=== PATIENT | male | born 1950 | race Native Hawaiian/Other Pacific Islander ===

== ENCOUNTER 2018-03-29 19:24 | Emergency (ER) | payer MEDICAID, OTHER ==
[~2018-03-29] VITALS: Ht 167.6 cm; Wt 113.4 kg
[2018-03-29 19:37] VITALS: BP 153/83
--- NOTE | 2018-03-29 19:40 | NUR ---
pt bib self c/o left ear pain for 1 week. no drainage or bleeding, +hearing. pt is awake and acting appropriate. hx DM, HTN
--- NOTE | 2018-03-29 19:41 | NUR ---
PT TAKEN TO BED 3
[2018-03-29 20:01] VITALS: BP 153/83
== END 2018-03-29 20:00 | disposition home or self-care (01) ==
LOC: MED 19:24
DX: H65.192 Other acute nonsuppurative otitis media, left ear (principal)
CPT/HCPCS: 99283

== ENCOUNTER 2018-07-25 07:55 | Emergency (ER) | payer OTHER ==
[~2018-07-25] VITALS: Ht 172.7 cm; Wt 104.3 kg
--- NOTE | 2018-07-25 07:57 | NUR ---
PATIENT AMBULATED TO BED 08 AT THIS TIME.
[2018-07-25 08:00] VITALS: BP 157/87
--- NOTE | 2018-07-25 08:00 | NUR ---
PATIENT PRESENTS TO ED WITH rolled off bed tuesday night---c/o acute sharp pain right rib area no discoloration no swelling noted---full clear speech, no splinting noted . PT DENIES N/V/D; SKIN IS PINK/WARM/DRY; AAOX4 WITH EVEN AND STEADY GAIT; LUNGS CLEAR BL; HR EVEN AND REGULAR; PT DENIES ANY FEVER, CP, SOB, OR COUGH AT THIS TIME; PATIENT STATES PAIN OF 8/10 AT THIS TIME; VSS; PATIENT POSITIONED FOR COMFORT; HOB ELEVATED; BEDRAILS UP X2; BED DOWN. ER MD MADE AWARE OF PT STATUS.
[2018-07-25] MEDS ORDERED: KETOROLAC 60 MG/2 ML VIAL IM ONE (08:50)
--- NOTE | 2018-07-25 09:00 | NUR ---
pt to radiology via
[2018-07-25 10:35] VITALS: BP 156/89
== END 2018-07-25 10:35 | disposition home or self-care (01) ==
LOC: MED 07:55
DX: S20.211A Contusion of right front wall of thorax, initial encounter (principal); R59.9 Enlarged lymph nodes, unspecified; K59.00 Constipation, unspecified; E11.9 Type 2 diabetes mellitus without complications; I10 Essential (primary) hypertension; R91.1 Solitary pulmonary nodule; Z85.46 Personal history of malignant neoplasm of prostate; W06.XXXA Fall from bed, initial encounter; Y93.89 Activity, other specified; Y92.89 Other specified places as the place of occurrence of the external cause; Y99.8 Other external cause status
CPT/HCPCS: 71250; 74176; 82948; 96372; 99284; J1885

== ENCOUNTER 2018-08-09 08:50 | Outpatient (CLI) | payer OTHER | END 2018-08-09 19:27 | disposition home or self-care (01) | LOC: MRD 08:50 | DX: R91.1 Solitary pulmonary nodule (principal); I10 Essential (primary) hypertension; E11.9 Type 2 diabetes mellitus without complications | CPT/HCPCS: 71250 ==

== ENCOUNTER 2018-10-21 18:01 | Emergency (ER) | payer OTHER ==
[~2018-10-21] VITALS: Ht 160 cm; Wt 113.4 kg
[2018-10-21 18:05] VITALS: BP 161/85
--- NOTE | 2018-10-21 18:05 | NUR ---
pt ambulated to bed 8
--- NOTE | 2018-10-21 18:14 | NUR ---
68 y male bib self c/o lower back pain 10/10 aching and worsening over 1 wk. pt says "it started months ago". Denies CP/SOB/Dysuria/NVD/trauma. vss at this time. aa0x4. bed is down, locked, bed rail x 1, ermd to see pt. hx---DM, HTN, Hypercholesterolemia meds--metformin, "some blood pressure med"
--- NOTE | 2018-10-21 18:47 | NUR ---
son at bedside
--- NOTE | 2018-10-21 19:06 | NUR ---
REPORT GIVEN TO RAMESH MORALES
--- NOTE | 2018-10-21 19:17 | NUR ---
Dr. Galeano evaluating patient at bedside.
[2018-10-21] MEDS ORDERED: KETOROLAC 60 MG/2 ML VIAL IM ONE (19:25)
--- NOTE | 2018-10-21 19:29 | NUR ---
TAKEN BY XRAY IN WHEELCHAIR.
--- NOTE | 2018-10-21 19:31 | NUR ---
Mk van in [facility] - 10/21/18 at 1931 by ELDA PT TAKEN TO YUAN
--- NOTE | 2018-10-21 19:41 | NUR ---
PT RETURN FROM XRAY
--- NOTE | 2018-10-21 19:41 | NUR ---
PT MOVED TO BED 6
[2018-10-21 20:22] VITALS: BP 151/82
== END 2018-10-21 20:23 | disposition home or self-care (01) ==
LOC: MED 18:01
DX: M54.5 Low back pain (principal); E11.9 Type 2 diabetes mellitus without complications; I10 Essential (primary) hypertension; Z85.9 Personal history of malignant neoplasm, unspecified
CPT/HCPCS: 72100; 96372; 99283; J1885

== ENCOUNTER 2018-11-16 10:50 | Outpatient (CLI) | payer OTHER | END 2018-11-16 20:00 | disposition home or self-care (01) | LOC: MRD 10:50 | PROVIDERS: ATTEND Internal Medicine | DX: R91.1 Solitary pulmonary nodule (principal) | CPT/HCPCS: 71250 ==

== ENCOUNTER 2019-04-25 07:45 | Outpatient (CLI) | payer OTHER | END 2019-04-25 22:02 | disposition home or self-care (01) | LOC: MCT 07:45 | PROVIDERS: ATTEND Internal Medicine | DX: R91.1 Solitary pulmonary nodule (principal); I51.7 Cardiomegaly; I25.10 Atherosclerotic heart disease of native coronary artery without angina pectoris; I70.0 Atherosclerosis of aorta; K44.9 Diaphragmatic hernia without obstruction or gangrene; K80.20 Calculus of gallbladder without cholecystitis without obstruction; E88.2 Lipomatosis, not elsewhere classified | CPT/HCPCS: 71250 ==

== ENCOUNTER 2019-09-05 01:15 | Emergency (ER) | payer MEDICARE, OTHER ==
[~2019-09-05] VITALS: Ht 167.6 cm; Wt 113.4 kg
[2019-09-05 01:19] VITALS: BP 169/84
--- NOTE | 2019-09-05 01:24 | NUR ---
PT TAKEN TO BED 5
--- NOTE | 2019-09-05 01:48 | NUR ---
69 YO MALE CO PAIN IN HIS LOWER BACK THAT RADIATES TO HIS STOMACH AND UPPER BACK. PT STATES THAT THE PAIN IS 9/10 IN HIS UPPER BACK ONLY. STATES "ATE PEANUT BUTTER TODAY AND THEN MY BACK STARTED TO HURT." HX OF DM, HIGH CHOLESTEROL. PT IS TAKING METFORMIN AND MED FOR HIGH CHOLESTEROL.
--- NOTE | 2019-09-05 01:52 | NUR ---
Dr. Ragsdale examining patient.
[2019-09-05] MEDS ORDERED: ACETAMINOPHEN EXTRA STRENGTH 500 MG TAB PO ONE (02:05)
--- NOTE | 2019-09-05 02:41 | NUR ---
Mk van in [facility] - 09/05/19 at 0253 by ELDA PT TAKEN TO BED 5
--- NOTE | 2019-09-05 02:44 | NUR ---
PT TAKEN TO CT
--- NOTE | 2019-09-05 03:06 | NUR ---
PT IN BED AWAKE AND ALERT. PT STATES PAIN IS 4/10 AT THIS TIME.
--- NOTE | 2019-09-05 03:54 | NUR ---
lab at bedside
[2019-09-05 04:01] LABS: BASOPHILS % (AUTO) 0.3 % (0.0-2.0); EOSINOPHILS # (AUTO) 0.3 K/uL (0-0.4); EOSINOPHILS % (AUTO) 3.4 % (0.0-4.0); HEMATOCRIT 43.6 % (36-52); HEMOGLOBIN 14.3 g/dL (12.0-18.0); LYMPHOCYTES # (AUTO) 1.5 K/uL (2.0-11.5); LYMPHOCYTES % (AUTO) 15.7 % (20.5-51.1); MEAN CORPUSCULAR HEMOGLOBIN 29 pg (27-31); MEAN CORPUSCULAR HGB CONC 33 g/dL (33-37); MONOCYTES # (AUTO) 0.9 K/uL (0.8-1.0); MONOCYTES % (AUTO) 9.2 % (1.7-9.3); NEUTROPHILS # (AUTO) 6.7 K/uL (1.8-7.7); NEUTROPHILS % (AUTO) 71.4 % (42.2-75.2); PLATELET COUNT (AUTO) 180 K/uL (140-450); RED CELL DISTRIBUTION WIDTH 13.6 % (11.6-13.7); WHITE BLOOD COUNT (AUTO) 9.4 K/uL (4.8-10.8)
--- NOTE | 2019-09-05 04:06 | NUR ---
pt laying in bed asleep. arouseable to name. pt is feelig less pain. no acute changes.
[2019-09-05 04:16] LABS: ALBUMIN 3.3 g/dL (3.4-5.0); ANION GAP 11.5 (8-16); CARBON DIOXIDE 28.4 mmol/L (21-32); CREATININE 1.1 mg/dL (0.6-1.3); POTASSIUM 3.9 mmol/L (3.5-5.1); TOTAL BILIRUBIN 0.4 mg/dL (0.0-1.0)
--- NOTE | 2019-09-05 04:17 | NUR ---
Ultrasound at bedside.
[2019-09-05 06:07] VITALS: BP 127/84
--- NOTE | 2019-09-05 06:08 | NUR ---
Note carlota in EDM - 09/05/19 at 0611 by [facility] Patient discharged with v/s stable. Written and verbal after care instructions given and explained. Patient alert, oriented and verbalized understanding of instructions. Ambulatory with steady gait. All questions addressed prior to discharge. ID band removed. Patient advised to follow up with PMD. Rx of IBUPROFEN given. Patient educated on indication of medication including possible reaction and side effects. Opportunity to ask questions provided and answered.
== END 2019-09-05 06:00 | disposition home or self-care (01) ==
LOC: MED 01:15
DX: K80.20 Calculus of gallbladder without cholecystitis without obstruction (principal); M54.5 Low back pain; E11.9 Type 2 diabetes mellitus without complications; I10 Essential (primary) hypertension; Z98.890 Other specified postprocedural states; Z85.46 Personal history of malignant neoplasm of prostate
CPT/HCPCS: 36415; 72131; 74176; 76705; 80053; 83690; 85025; 99285; Q0092

== ENCOUNTER 2020-01-11 23:55 | Emergency (ER) | payer MEDICARE ==
[~2020-01-11] VITALS: Ht 167.6 cm; Wt 113.4 kg
[2020-01-12 00:02] VITALS: BP 174/90
[2020-01-12] MEDS ORDERED: KETOROLAC 30 MG/ML VIAL IVP ONE (00:55)
[2020-01-12 01:13] LABS: BASOPHILS # (AUTO) 0.1 K/uL (0.00-0.22); BASOPHILS % (AUTO) 1.2 % (0.0-2.0); EOSINOPHILS # (AUTO) 0.1 K/uL (0-0.4); EOSINOPHILS % (AUTO) 1.5 % (0.0-4.0); HEMATOCRIT 45.1 % (36-52); HEMOGLOBIN 14.9 g/dL (12.0-18.0); LYMPHOCYTES # (AUTO) 1.7 K/uL (2.0-11.5); LYMPHOCYTES % (AUTO) 17.6 % (20.5-51.1); MEAN CORPUSCULAR HEMOGLOBIN 29 pg (27-31); MEAN CORPUSCULAR HGB CONC 33 g/dL (33-37); MEAN CORPUSCULAR VOLUME 89.2 fL (80-94); MONOCYTES # (AUTO) 0.9 K/uL (0.8-1.0); MONOCYTES % (AUTO) 9.4 % (1.7-9.3); NEUTROPHILS # (AUTO) 6.8 K/uL (1.8-7.7); NEUTROPHILS % (AUTO) 70.3 % (42.2-75.2); PLATELET COUNT (AUTO) 191 K/uL (140-450); RED BLOOD CELL COUNT(AUTO) 5.05 MIL/uL (4.20-6.10); RED CELL DISTRIBUTION WIDTH 13.4 % (11.6-13.7); WHITE BLOOD COUNT (AUTO) 9.7 K/uL (4.8-10.8)
[2020-01-12 01:30] LABS: ALBUMIN 3.6 g/dL (3.4-5.0); ANION GAP 14.2 (8-16); CARBON DIOXIDE 26.6 mmol/L (21-32); POTASSIUM 3.8 mmol/L (3.5-5.1); TOTAL BILIRUBIN 0.5 mg/dL (0.0-1.0)
[2020-01-12 02:12] VITALS: BP 172/89
== END 2020-01-12 02:10 | disposition home or self-care (01) ==
LOC: MED 23:55
DX: R10.13 Epigastric pain (principal); E11.9 Type 2 diabetes mellitus without complications; I10 Essential (primary) hypertension; Z85.46 Personal history of malignant neoplasm of prostate
CPT/HCPCS: 36415; 76705; 80053; 81002; 83690; 85025; 96374; 99284; J1885; Q0092

== ENCOUNTER 2020-03-07 07:40 | Emergency (ER) | payer MEDICARE ==
[~2020-03-07] VITALS: Ht 162.6 cm; Wt 113.4 kg
[2020-03-07 07:42] VITALS: BP 150/78
--- NOTE | 2020-03-07 07:44 | NUR ---
PT AMBULATED TO BED 4.
--- NOTE | 2020-03-07 07:50 | NUR ---
PT C/O NON-RADIATING LEFT-SIDED LOWER BACK PAIN SINCE YESTERDAY. PT STATES HE HAD THIS KIND OF PAIN BEFORE AND HAD SOME RELIEF WITHOUT TYLENOL. PT DENIES ANY COVID RELATED SX, URINARY/FECAL INCONTINENCE, NUMBNESS/TINGLING SENSATION ON LOWER LEGS, TRAUMA/INJURY TO THE BACK. STRAIGHT RAISING LEG TEST NEGATIVE.
[2020-03-07] MEDS ORDERED: KETOROLAC 30 MG/ML VIAL IM ONE (08:05)
[2020-03-07 09:16] VITALS: BP 146/87
--- NOTE | 2020-03-07 09:16 | NUR ---
Patient discharged with v/s stable. Written and verbal after care instructions given and explained. Patient alert, oriented and verbalized understanding of instructions. Ambulatory with steady gait. All questions addressed prior to discharge. ID band removed. Patient advised to follow up with PMD. Rx of NAPROSYN AND FLEXERIL given. Patient educated on indication of medication including possible reaction and side effects. Opportunity to ask questions provided and answered.
== END 2020-03-07 09:10 | disposition home or self-care (01) ==
LOC: MED 07:40
DX: M54.5 Low back pain (principal); E11.9 Type 2 diabetes mellitus without complications; I10 Essential (primary) hypertension; Z85.9 Personal history of malignant neoplasm, unspecified; Z98.890 Other specified postprocedural states
CPT/HCPCS: 81002; 96372; 99283; J1885

== ENCOUNTER 2020-04-12 00:18 | Observation (INO) | payer MEDICARE, SELFPAY ==
[~2020-04-12] VITALS: Ht 162.6 cm; Wt 113.4 kg
[2020-04-12 00:22] VITALS: BP 174/82
--- NOTE | 2020-04-12 00:29 | NUR ---
PT AMBULATED TO BED #9
--- NOTE | 2020-04-12 00:50 | NUR ---
IN BED 9 WITH C/O RIGHT MID ABDOMINAL PAIN X 3.5 HOURS. MUCH FACIAL GRIMACING IS NOTED. ABDOMEN IS SOFT AND TENDER. LAST BM WAS YESTERDAY AM AND WAS WNL. PMH : DM, HTN NKDA
--- NOTE | 2020-04-12 00:50 | NUR ---
TO BED 9 WITH C/O RIGHY Addendum: 04/12/20 at 0111 by OSIELKH TO BED 9 WITH C/O RIGHT ABDOMINAL PAIN X 3.5 HOURS. DENIES VOMITING OR DIARRHEA. IS AWAKE AND ALERT, SKIN IS WARM AND DRY. BOWEL SOUNDS ARE ACTIVE, ABDOMEN IS TENDER. PMH ; DM, HTN NKDA
[2020-04-12] MEDS ORDERED: NACL 0.9% 1,000 ML IV ONE (01:15)
[2020-04-12] MEDS ORDERED: MORPHINE SULFATE 4 MG/ML SYR IVP ONE (01:15)
[2020-04-12] MEDS ORDERED: ONDANSETRON 4 MG/2 ML VIAL IVP ONE (01:15)
[2020-04-12] MEDS ORDERED: PANTOPRAZOLE 40 MG INJ VIAL IVP ONE (01:15)
[2020-04-12 01:34] LABS: BASOPHILS # (AUTO) 0.1 K/uL (0.00-0.22); BASOPHILS % (AUTO) 0.7 % (0.0-2.0); EOSINOPHILS # (AUTO) 0.2 K/uL (0-0.4); EOSINOPHILS % (AUTO) 2.4 % (0.0-4.0); HEMATOCRIT 45.1 % (36-52); LYMPHOCYTES # (AUTO) 2.3 K/uL (2.0-11.5); LYMPHOCYTES % (AUTO) 27.8 % (20.5-51.1); MEAN CORPUSCULAR HEMOGLOBIN 30 pg (27-31); MEAN CORPUSCULAR HGB CONC 33 g/dL (33-37); MEAN CORPUSCULAR VOLUME 88.6 fL (80-94); MONOCYTES # (AUTO) 1.1 K/uL (0.8-1.0); MONOCYTES % (AUTO) 12.8 % (1.7-9.3); NEUTROPHILS # (AUTO) 4.7 K/uL (1.8-7.7); NEUTROPHILS % (AUTO) 56.3 % (42.2-75.2); PLATELET COUNT (AUTO) 181 K/uL (140-450); RED BLOOD CELL COUNT(AUTO) 5.09 MIL/uL (4.20-6.10); RED CELL DISTRIBUTION WIDTH 13.5 % (11.6-13.7); WHITE BLOOD COUNT (AUTO) 8.3 K/uL (4.8-10.8)
[2020-04-12 01:44] LABS: ANION GAP 9.9 (8-16); CARBON DIOXIDE 28.7 mmol/L (21-32); CREATININE 1.1 mg/dL (0.6-1.3); POTASSIUM 3.6 mmol/L (3.5-5.1)
[2020-04-12 01:50] LABS: ALBUMIN 3.5 g/dL (3.4-5.0); TOTAL BILIRUBIN 0.5 mg/dL (0.0-1.0)
--- NOTE | 2020-04-12 02:00 | NUR ---
18 G ESTABLISHED RIGHT A/C FOLLOWED BY MEDS ORDERED
--- NOTE | 2020-04-12 02:10 | NUR ---
CONSENT FORM OBTAINED AND SIGNED BY PT.
--- NOTE | 2020-04-12 02:12 | NUR ---
TO CT VIA W/C. CONSENT FOR CONTRAST WAS SIGNED
--- NOTE | 2020-04-12 02:30 | NUR ---
pt returned back from ct via w/c.
--- NOTE | 2020-04-12 02:41 | NUR ---
urine specimen collected and sent to lab.
[2020-04-12 03:04] LABS: APPEARANCE,URINE CLEAR (CLEAR); BILIRUBIN,URINE NEGATIVE (NEGATIVE); BLOOD, URINE TRACE-I (NEGATIVE); COLOR,URINE YELLOW (YELLOW); LEUKOCYTE ESTERASE ,URINE NEGATIVE (NEGATIVE); NITRITE, URINE NEGATIVE (NEGATIVE); UGLUCOSE 1+ (NEGATIVE)
--- NOTE | 2020-04-12 03:06 | NUR ---
PT AMBULATED TO BATHROOM WITH A STEADY GAIT.
--- NOTE | 2020-04-12 03:09 | NUR ---
REEVALUATED PTS PAIN LEVEL. PT SAID PAIN DECREASED.
[2020-04-12 03:20] LABS: HYALINE CASTS, URINE 0-10 /LPF (None Seen); RBC,URINE 0-5 /HPF (0-5); WBC,URINE 0 /HPF (0-5)
[2020-04-12] MEDS ORDERED: KETOROLAC 30 MG/ML VIAL IVP ONE (04:10)
[2020-04-12] MEDS ORDERED: METF500T PO (04:33)
[2020-04-12] MEDS ORDERED: LISI30TA6 PO (04:33)
--- NOTE | 2020-04-12 05:52 | NUR ---
PT AMBULATED TO BATHROOM WITH A STEADY GAIT.
--- NOTE | 2020-04-12 06:05 | NUR ---
RECEIVED BEDSIDE REPORT FROM DRAFTER REFRIGERATION YANI. PT IS AAOX4. DIVEHI SPEAKING. AMBULATED FROM WHEEL CHAIR TO BED WITH STEADY GAIT. SKIN IS INTACT LUNG SOUNDS ARE CLEAR AND SAT WELL ON ROOM AIR. C/C RUQ PAIN X1 DAY. DX CHOLELITHIASIS HX DM AND HTN. ABD IS ROUND, BOWEL SOUNDS ARE ACTIVE X4. LBM 04/12. PT REPORT LAST MEAL YESTERDAY AT 1800. PT NPO. IV ON RAC 18G IS PATENT. PT BEING ADMITTED UNDER OBSERVATION. VS: 166/70 HR 77 16 98% RA 97.8 PAIN TOLERABLE 10. MRSA SWAB OBTAINED. ORIENTED PT TO ROOM, STAFF, AND CALL LIGHT. POC DISCUSSED WITH PT. PT VERBALIZED UNDERSTANDING. CALL LIGHT IS WITHIN REACH. WILL CONTINUE TO MONITOR.
--- NOTE | 2020-04-12 06:05 | NUR ---
Patient will be admitted to care of CARMEN CISNEROS. Admited to 111B . Belongings list completed. PT IS MORE COMFORTABLE AT THIS TIME .
[2020-04-12] MEDS ORDERED: MORPHINE SULFATE 4 MG/ML SYR IVP PRN (06:10)
[2020-04-12] MEDS ORDERED: NACL 0.9% 1,000 ML IV SCH (06:10)
[2020-04-12] MEDS ORDERED: ONDANSETRON 4 MG/2 ML VIAL IVP PRN ×2 (06:10→16:40)
[2020-04-12] MEDS ORDERED: ACETAMINOPHEN 325 MG TAB PO PRN (06:10)
[2020-04-12] MEDS ORDERED: HYDROcodone/APAP 5/325 MG 1 TAB TAB PO PRN ×2 (06:10→17:45)
[2020-04-12 06:15] VITALS: BP 166/70
[2020-04-12] MEDS ORDERED: DEXTROSE 50% 50 ML SYR IVP PRN (06:20)
--- NOTE | 2020-04-12 07:30 | NUR ---
GAVE BEDSIDE REPORT TO DAY RN. PT ENDORSED IN STABLE CONDITION.
--- NOTE | 2020-04-12 07:35 | NUR ---
RECEIVED PT FROM DIRECTOR GRAPHICS NURSE, PT WAS AWAKE IN BED AND VERBALIZED 3 OUT OF 10 PAIN LOCATED TO THE RUQ, 18 G IV NOTED TO RAC RUNNING NS 80ML/HR, NO ZAMBRANO PRESENT, ON ROOM AIR, SAFETY MEASURES AND PRECAUTIONS IN PLACE, 2 SIDE HEAD RAILS UP, NO DISTRESS NOTED, WILL CONTINUE TO MONITOR PT.
[2020-04-12 08:00] VITALS: BP 142/79
--- NOTE | 2020-04-12 10:30 | NUR ---
PT IS RESTING DENIES PAIN AND NO SIGN OF DISTRESS NOTED, WILL MONITOR PT.
[2020-04-12] MEDS: PIPERACILLIN/TAZOBACTAM 3.375 GM in DEXTROSE 5% 50 ML IV SCH ×2 (12:48→20:25)
[2020-04-12] MEDS: BLOOD GLUCOSE MONITORING 1 DEV DEV FS SCH ×2 (12:50→18:49)
--- NOTE | 2020-04-12 12:50 | NUR ---
PT WAS GIVEN THE SCHEDULED MEDICATIONS NOW VIA IVPB, BLOOD GLUCOSE WAS CHECKED AND IS 160, PT WAS NOT GIVEN THE 2 UNITS SLIDING SCALE COVERAGE BECAUSE PT IS NPO, WILL MONITOR PT.
--- NOTE | 2020-04-12 13:58 | NUR ---
DR. TRUJILLO CAME TO THE PT'S ROOM AND TALKED TO PT REGARDING THE PLAN OF SURGERY, MD DISCUSSED RISKS AND BENEFITS AND PT VERBALIZED UNDERSTANDING.
--- NOTE | 2020-04-12 14:05 | NUR ---
PT SIGNED THE CONSENT FOR A LAPAROSCOPIC CHOLECYSTECTOMY POSSIBLE CHOLANGIOGRAM, PT VERBALIZED UNDERSTANDING OF THE RISK AND BENEFITS THAT MD DISCUSSED.
--- NOTE | 2020-04-12 14:12 | NUR ---
CALLED LAB NOW TO F/U THE TYPE AND SCREEN ORDER FOR PT.
[2020-04-12 14:39] LABS: PROTHROMBIN TIME 10.1 secs (10.8-13.4)
--- NOTE | 2020-04-12 14:50 | NUR ---
PT IS OFF THE UNIT NOW FOR A LAPAROSCOPIC CHOLECYSTECTOMY WITH DR. TRUJILLO.
[2020-04-12] MEDS: BUPIVACAINE-MPF 0.25% 30 ML VIAL INJ ONE ×2 (15:00→17:45)
[2020-04-12] MEDS: LIDOCAINE 1% 500 MG/50 ML VIAL ONE ×2 (15:00→17:45)
[2020-04-12] MEDS ORDERED: ETOMIDATE 20 MG/10 ML VIAL IVP ONE (15:45)
[2020-04-12] MEDS ORDERED: fentaNYL citrate 0.05 MG/ML VIAL ONE (15:45)
[2020-04-12] MEDS ORDERED: LIDOCAINE MPF 2% 100 MG/5 ML VIAL INJ ONE (15:45)
[2020-04-12] MEDS ORDERED: PROPOFOL 200 MG/20 ML VIAL IV ONE (15:45)
[2020-04-12] MEDS ORDERED: ROCURONIUM 50 MG/5 ML VIAL IV ONE (15:45)
[2020-04-12] MEDS ORDERED: hydrALAZINE 20 MG/ML VIAL ONE (15:45)
[2020-04-12] MEDS ORDERED: NEOSTIGMINE 1:1000 10 MG/10 ML VIAL ONE (15:45)
[2020-04-12] MEDS ORDERED: SEVOFLURANE 250 ML BTL INH ONE (15:45)
[2020-04-12] MEDS ORDERED: METOCLOPRAMIDE 10 MG/2 ML INJ VIAL ONE (15:45)
[2020-04-12] MEDS ORDERED: SUCCINYLCHOLINE CHLORIDE 200 MG/10 ML VIAL IVP ONE (15:45)
[2020-04-12] MEDS ORDERED: MEPERIDINE 25 MG/ML SYR ONE (15:45)
[2020-04-12] MEDS ORDERED: LABETALOL 20 MG/4 ML VIAL IVP ONE (15:45)
[2020-04-12] MEDS ORDERED: GLYCOPYRROLATE 0.2 MG/ML VIAL ONE (15:45)
[2020-04-12] MEDS: BLOOD GLUCOSE MONITORING 1 DEV DEV FS ONE ×2 (16:40→17:55)
[2020-04-12] MEDS ORDERED: diphenhydrAMINE 50 MG/ML VIAL IVP PRN (16:40)
[2020-04-12] MEDS ORDERED: MEPERIDINE 25 MG/ML SYR IVP PRN (16:40)
[2020-04-12] MEDS ORDERED: fentaNYL citrate 0.05 MG/ML VIAL IVP PRN (16:45)
--- NOTE | 2020-04-12 18:45 | NUR ---
PT CAME BACK FROM SURGERY, BP IS 107/52, TEMP. IS 98.6, O2 SATURATION IS 95% ON RA, RESPIRATION IS 22, C/O PAIN IS 2/10, 5 SURGICAL INCISIONS NOTED ON THE ABDOMEN, REINFORCED WITH BAND-AID. WILL MONITOR PT.
[2020-04-12] MEDS: LACTATED RINGERS 1,000 ML IV SCH (18:52)
--- NOTE | 2020-04-12 18:52 | NUR ---
PT WAS STARTED WITH IVF LACTATED RINGER AT 120ML/HR.
--- NOTE | 2020-04-12 18:55 | NUR ---
PT INITIATED LIQUID DIET, PT IS TOLERATING LIQUID DIET WELL, WILL CONTINUE TO MONITOR PT
--- NOTE | 2020-04-12 19:20 | NUR ---
ENDORSED PT TO ASSISTANT DIRECTOR OF RESIDENCE LIFE NURSE FOR CONTINUITY OF CARE, PT IS STABLE AT THIS TIME.
--- NOTE | 2020-04-12 19:25 | NUR ---
RECEIVED PT AAOX4 . NID - O2 SAT WNL , IV SITE INTACT AND PATENT , S/P LAP. CHOLECYSTECTOMY - W/ 5 SURGICAL EXCISSION ON ABD. - NO ACTIVE BLEEDING NOTED AT THIS TIME . BEARABLE PAIN HE SAID AT THIS TIME . SAFETY MEASURES IN PLACE - CALL LIGHT WITHIN REACH . PLAN OF CARE DISCUSSED AND VERBALIZED UNDERSTANDING . CLEAR LIQ DIET - TOLERATED . WILL CONT. TO MONITOR.
--- NOTE | 2020-04-12 22:00 | NUR ---
MADE ROUNDS , NO S/SX OF ACUTE DISTRESS NOTED AT THIS TIME . CALL LIGHT WITHIN REACH .
[2020-04-13] VITALS: BP 114/76
--- NOTE | 2020-04-13 | NUR ---
WENT TO THE REST ROOM , VOIDED FREELY - NO COMPLAIN MADE .
[2020-04-13] MEDS: INSULIN LISPRO SLIDING SCALE 100 UNITS/ML VIAL SUBQ PRN ×6 (00:19→23:44)
--- NOTE | 2020-04-13 01:48 | NUR ---
SLEEPING - CHEST RISE AND FALL EQUALLY - CALL LIGHT WITHIN REACH .
--- NOTE | 2020-04-13 04:00 | NUR ---
O2 SAT WNL - DENIES ANY PAIN . NO S/SX OF ACUTE DISTRESS NOTED . WILL CONT. TO MONITOR
[2020-04-13] MEDS: LACTATED RINGERS 1,000 ML IV SCH ×3 (04:38→17:46)
[2020-04-13] MEDS: PIPERACILLIN/TAZOBACTAM 3.375 GM in DEXTROSE 5% 50 ML IV SCH ×3 (04:39→21:42)
--- NOTE | 2020-04-13 06:00 | NUR ---
NO COMPLAIN MADE . CALL LIGHT WITHIN REACH .
--- NOTE | 2020-04-13 06:27 | NUR ---
PATIENT HAS BEEN SCREENED AND CATEGORIZED MODERATE NUTRITION RISK. PATIENT WILL BE SEEN WITHIN 3-5 DAYS OF ADMISSION. 04/15/20-04/17/20 JEFFY WASSERMAN MS, RDN
[2020-04-13 06:39] LABS: HEMATOCRIT 41.4 % (36-52); MEAN CORPUSCULAR HEMOGLOBIN 30 pg (27-31); MEAN CORPUSCULAR HGB CONC 34 g/dL (33-37); MEAN CORPUSCULAR VOLUME 87.5 fL (80-94); PLATELET COUNT (AUTO) 155 K/uL (140-450); RED BLOOD CELL COUNT(AUTO) 4.72 MIL/uL (4.20-6.10); RED CELL DISTRIBUTION WIDTH 13.2 % (11.6-13.7); WHITE BLOOD COUNT (AUTO) 12.5 K/uL (4.8-10.8)
[2020-04-13] MEDS: BLOOD GLUCOSE MONITORING 1 DEV DEV FS SCH ×5 (06:53→23:41)
[2020-04-13 07:00] LABS: ALBUMIN 2.7 g/dL (3.4-5.0); ANION GAP 13.9 (8-16); CARBON DIOXIDE 25.6 mmol/L (21-32); CREATININE 1.1 mg/dL (0.6-1.3); POTASSIUM 3.5 mmol/L (3.5-5.1); TOTAL BILIRUBIN 1.9 mg/dL (0.0-1.0)
--- NOTE | 2020-04-13 07:10 | NUR ---
ENDORSED TO AM SHIFT - PT - STABLE .
--- NOTE | 2020-04-13 07:10 | NUR ---
RECEIVED PT FROM MANAGER RESEARCH AND DEVELOPMENT NURSE, 5 SURGICAL INCISIONS LOCATED IN THE ABDOMEN REINFORCED WITH BANDAID, NO DRAINAGE, INTACT ,THE PT WAS AWAKE IN BED, 18 G IV NOTED TO RAC RUNNING LR 120 ML/HR, PT VERBALIZED HE HAS NOT PASSED GAS YET BUT AMBULATED SEVERAL TIMES TO THE BATHROOM, NO ZAMBRANO PRESENT, ON ROOM AIR, SAFETY MEASURES AND PRECAUTIONS IN PLACE, 2 SIDE HEAD RAILS UP, NO DISTRESS NOTED, WILL CONTINUE TO MONITOR PT.
[2020-04-13 07:47] LABS: BASOPHILS % (MANUAL) 0 % (0-2); EOSINOPHILS % (MANUAL) 0 % (0-4); LYMPHOCYTES % (MANUAL) 13 % (20-46); MONOCYTES % (MANUAL) 10 % (5-12)
[2020-04-13 08:00] VITALS: BP 126/63
--- NOTE | 2020-04-13 09:45 | NUR ---
DR. TRUJILLO CALLED AND ASKED ABOUT PT STATUS, MD WAS INFORMED PT AMBULATED IN [facility], NO SIGNS OF DISTRESS NOTED, HAS NOT PASSED GAS YET. DR. TRUJILLO MADE TELEPHONE ORDER TO INFORM DR. LEI TO HAVE A GI CONSULTATION FOR THE PT, TELEPHONE ORDER READ BACK AND VERIFIED, ORDER WILL BE CARRIED OUT.
--- NOTE | 2020-04-13 12:27 | NUR ---
PT WAS GIVEN IVPB SCHEDULED MEDICATIONS, AND INSULIN 2 UNITS ON THE LEFT UA, FOR BLOOD GLUCOSE OF 190, WILL MONITOR PT.
--- NOTE | 2020-04-13 13:50 | NUR ---
DR. HARTMAN CAME AND PLACE A GI CONSULT FOR PT WITH DR. LIU FOR THE INCREASE SERUM BILIRUBIN OF THE PT.
--- NOTE | 2020-04-13 14:00 | NUR ---
SPOKE WITH DR. HARTMAN REGARDING PT'S OBSERVATION STATUS, ATTENDING STATED HE WILL BE THE ONE TO PLACE THE ORDER FOR IN PATIENT.
[2020-04-13 16:00] VITALS: BP 144/69
--- NOTE | 2020-04-13 17:57 | NUR ---
PT WAS GIVEN INSULIN 2 UNITS ON THE RT UA FOR BLOOD GLUCOSE OF 159 AND WILL MONITOR PT.
--- NOTE | 2020-04-13 19:25 | NUR ---
RECEIVED REPORT AND CONTINUITY OF CARE FROM AM NURSE.
--- NOTE | 2020-04-13 19:26 | NUR ---
ENDORSED PT TO LOCAL [place] DRIVER NURSE FOR CONTINUITY OF CARE
--- NOTE | 2020-04-13 21:20 | NUR ---
UPON PHYSICAL ASSESSMENT, PT IS A/OX4, ABLE TO RESPOND TO QUESTIONS, HEAD IS ROUND, NORMOCEPHALIC, FACE IS UNIFORMED, SYMMETRICAL, ALIGNED EYEBROWS AND SMILE, PMMM, SCLERA WHITE, PERRL. TRACHEA IS PLACE IN THE MIDLINE OF THE NECK, NO JVD PRESENT. CHEST IS SYMMETRICAL, LUNGS ARE CTAX4, ON INSPIRATION AND EXPIRATION. S1, S2 HEART TONES NOTED. BOWEL TONES ARE ACTIVE IN FOUR QUADRANTS. ABD IS FLAT AND NONTENDER. PT IS S/P LAB ROSA MARIA, SURGICAL INCISIONS ARE COVERED WITH BAND-AID WHICH ARE CLEAN, DRY, INTACT. SKIN IS SMOOTH, WARM, DRY. NAILS ARE CLEAN, INTACT, CAP REFILL IS LESS THAN 3 SECONDS, NO CLUBBING OR CYANOSIS NOTED. EQUAL AND BILATERAL PEDAL PULSES NOTED. NONPITTING BILATERAL LOWER EXTREMITIES NOTED. ORIENTED PT TO STAFF AND CALL LIGHT. ADMINISTERED SCHEDULED MEDICATION. EDUCATION RENDERED. SAFETY PRECAUTIONS IN PLACE.
[2020-04-14] VITALS: BP 136/72
--- NOTE | 2020-04-14 01:15 | NUR ---
WOUND ASSESSMENT COMPLETE. PHOTOGRAPH DONE.
[2020-04-14] MEDS: LACTATED RINGERS 1,000 ML IV SCH ×2 (02:24→11:32)
--- NOTE | 2020-04-14 04:30 | NUR ---
PT IS SLEEPING. NO SIGNS OF DISTRESS NOTED.
[2020-04-14] MEDS: PIPERACILLIN/TAZOBACTAM 3.375 GM in DEXTROSE 5% 50 ML IV SCH ×2 (05:17→12:19)
[2020-04-14] MEDS: BLOOD GLUCOSE MONITORING 1 DEV DEV FS SCH ×2 (06:46→12:15)
[2020-04-14] MEDS: INSULIN LISPRO SLIDING SCALE 100 UNITS/ML VIAL SUBQ PRN (06:46)
[2020-04-14 06:59] LABS: BASOPHILS % (AUTO) 0.1 % (0.0-2.0); EOSINOPHILS # (AUTO) 0.2 K/uL (0-0.4); EOSINOPHILS % (AUTO) 1.2 % (0.0-4.0); HEMATOCRIT 40.2 % (36-52); HEMOGLOBIN 13.5 g/dL (12.0-18.0); LYMPHOCYTES # (AUTO) 1.3 K/uL (2.0-11.5); LYMPHOCYTES % (AUTO) 9.9 % (20.5-51.1); MEAN CORPUSCULAR HEMOGLOBIN 30 pg (27-31); MEAN CORPUSCULAR HGB CONC 34 g/dL (33-37); MONOCYTES # (AUTO) 1.7 K/uL (0.8-1.0); MONOCYTES % (AUTO) 12.5 % (1.7-9.3); NEUTROPHILS # (AUTO) 10.1 K/uL (1.8-7.7); NEUTROPHILS % (AUTO) 76.3 % (42.2-75.2); PLATELET COUNT (AUTO) 146 K/uL (140-450); RED BLOOD CELL COUNT(AUTO) 4.56 MIL/uL (4.20-6.10); RED CELL DISTRIBUTION WIDTH 13.3 % (11.6-13.7); WHITE BLOOD COUNT (AUTO) 13.2 K/uL (4.8-10.8)
[2020-04-14 07:04] LABS: ALBUMIN 2.7 g/dL (3.4-5.0); ANION GAP 13.1 (8-16); CARBON DIOXIDE 27.2 mmol/L (21-32); CREATININE 1.1 mg/dL (0.6-1.3); POTASSIUM 3.3 mmol/L (3.5-5.1); TOTAL BILIRUBIN 1.5 mg/dL (0.0-1.0)
--- NOTE | 2020-04-14 07:15 | NUR ---
RECEIVED PATIENT FROM SUBSTATION OPERATOR TRANSFORMING NURSE PA FOR CONTINUITY OF CARE. PATIENT IN STABLE CONDITION. RESPIRATIONS EVEN AND UNLABORED, ROOM AIR. IV INTACT AND PATENT. SAFETY MEASURES IN PLACE. BED IN LOW POSITION. CALL LIGHT WITHIN REACH. WILL CONTINUE TO MONITOR.
[2020-04-14 08:00] VITALS: BP 156/75
--- NOTE | 2020-04-14 09:30 | NUR ---
PATIENT WATCHING TV SITTING AT THE SIDE OF THE BED IN STABLE CONDITION. BED IN LOW POSITION. CALL LIGHT WITHIN REACH. WILL CONTINUE TO MONITOR.
--- NOTE | 2020-04-14 10:41 | NUR ---
SOCIAL WORK NOTE: Patient's Orientation Unable To Assess Information Provided By JERMAINE TELLEZ - SON Comments SW WAS UNABLE TO MEET PATIENT AT BEDSIDE. SW COMPLETED ASSESSMENT WITH SON, JERMAINE. Workers Compensation Paralegal, Realtionship and Phone Number JERMAINE TELLEZ SON [phone] STACY TELLEZ [phone] Healthcare Power of Manager Books No Does Patient Have a POLST No Identifying Problems No Social Work Triggers Is A Social Work Consult Needed No Mandate Report Filed No Explanation Of Identifying Problems PATIENT IS A 69-YEAR-OLD FEMALE ADMITTED FOR CHOLELITHIASIS. PATIENT HAS PMHX OF TYPE 2 DIABETES, HYPERTENSION, AND HYPERLIPIDEMIA. PATIENT'S SON REPORTED NO HISTORY OF SUBSTANCE ABUSE OR MENTAL HEALTH. Admitted From Home Pre-Admission Level Of Functioning Status Independent/Ambulatory Prior Resources/Services Used In Last 12 Months No Prior Resources Used Prior DME No Prior DME Used Dialysis Comments PATIENT'S SON REPORTED THAT PATIENT DOES NOT RECEIVE DIALYSIS. Living Situation Apartment Lives With Family Patient Had Caregiver No Home Support No Caregiver Issues Financial Issues No Known Financial Issue Referral To The Financial Counselor Needed No Factors/Needs No D/C Needs Identified Pt/Rep Participated In Discharge Plan Yes Patient/Family Agress With Discharge Plan Yes Discharge Plan Comments TENTATIVE DISCHARGE PLAN IS FOR PATIENT TO RETURN HOME. DC Plan Status Initiated
--- NOTE | 2020-04-14 12:15 | NUR ---
TORB DR. HARO, [facility] POTASSIUM 40 MEQ PO ONCE.
--- NOTE | 2020-04-14 12:20 | NUR ---
GAVE PATIENT LUNCH TRAY. PATIENT IN STABLE CONDITION.
[2020-04-14] MEDS ORDERED: POTASSIUM CHLORIDE 10 MEQ TABER PO SCH (12:30)
--- NOTE | 2020-04-14 14:00 | NUR ---
GAVE DISCHARGE INSTRUCTIONS AT THIS TIME. PATIENT VERBALIZED UNDERSTANDING. REMOVED IV, LUMEN INTACT. REMOVED ID BAND. WHEELED PATIENT TO LOBBY IN STABLE CONDITION.
--- NOTE | 2020-04-24 12:17 | NUR ---
LATE ENTRY- UPON REVIEW OF THE CHART THE IVPB INITITATED ON 04/14/2020 AT 0517 WAS COMPLETED ON 04/14/2020 AT 0545.
--- NOTE | 2020-04-24 12:18 | NUR ---
LATE ENTRY- UPON REVIEW OF THE CHART THE IVPB INITITATED ON 04/13/2020 AT 1222 WAS COMPLETED ON 04/13/2020 AT 1252.
== END 2020-04-14 14:00 | disposition home or self-care (01) ==
LOC: MED 00:18 → MTU 05:18 → INTOOBSV 05:18
PROVIDERS: ADMIT Hospitalist; ATTEND Hospitalist
DX: K80.00 Calculus of gallbladder with acute cholecystitis without obstruction (principal); Z20.828 Contact with and (suspected) exposure to other viral communicable diseases; R11.2 Nausea with vomiting, unspecified; E11.65 Type 2 diabetes mellitus with hyperglycemia; I10 Essential (primary) hypertension; E78.5 Hyperlipidemia, unspecified; E87.1 Hypo-osmolality and hyponatremia; R74.8 Abnormal levels of other serum enzymes; E66.01 Morbid (severe) obesity due to excess calories; G89.29 Other chronic pain; M54.5 Low back pain; E78.00 Pure hypercholesterolemia, unspecified; Z85.46 Personal history of malignant neoplasm of prostate; Z90.79 Acquired absence of other genital organ(s); Z79.84 Long term (current) use of oral hypoglycemic drugs; Z79.899 Other long term (current) drug therapy; Z68.41 Body mass index [BMI] 40.0-44.9, adult
CPT/HCPCS: 36415; 47562; 74177; 80053; 81001; 82948; 83690; 85025; 85610; 85730; 86886; 86900; 86901; 87081; 87426; 88304; 96361; 96365; 96366; 96372; 96375; 99285; C9113; G0378; J0330; J0360; J1885; J2001; J2175; J2270; J2405; J2543; J2704; J2710; J2765; J3010; J3490; J7030; J7060; J7120; Q9967; 96374

== ENCOUNTER 2023-06-08 13:50 | Emergency (ER) | payer MEDICARE ==
[~2023-06-08] VITALS: Ht 162.6 cm; Wt 117.9 kg
[~2023-06-08 13:50] MED LIST: LISI30TA6 PO; METF-346 PO
[2023-06-08 14:15] VITALS: BP 131/83; PULSE 95; RESP 18; TEMP 100; O2SAT 93
[2023-06-08 16:05] LABS: FLU A ANTIGEN negative (NEGATIVE)
[2023-06-08 16:06] LABS: FLU B ANTIGEN POSITIVE (NEGATIVE)
[2023-06-08] MEDS ORDERED: ALBU0.0912 IH (16:22)
[2023-06-08] MEDS ORDERED: AZIT250T4 PO (16:22)
[2023-06-08] MEDS ORDERED: AMOX-1230 PO (16:22)
[2023-06-08] MEDS ORDERED: ACET-10509 PO (16:22)
== END 2023-06-08 16:38 | disposition home or self-care (01) ==
LOC: MED 13:50
DX: J40 Bronchitis, not specified as acute or chronic (principal); J11.1 Influenza due to unidentified influenza virus with other respiratory manifestations; Z20.822 Contact with and (suspected) exposure to COVID-19; E11.9 Type 2 diabetes mellitus without complications; I10 Essential (primary) hypertension; Z79.899 Other long term (current) drug therapy; Z79.2 Long term (current) use of antibiotics
CPT/HCPCS: 71045; 99284

== ENCOUNTER 2023-08-26 12:35 | Emergency (ER) | payer MEDICARE ==
[~2023-08-26] VITALS: Ht 167.6 cm; Wt 117.9 kg
[~2023-08-26 12:35] MED LIST changes: +ACET-10509 PO; +ALBU0.0912 IH; +AMOX-1230 PO; +AZIT250T4 PO
[2023-08-26 12:51] VITALS: BP 148/84; PULSE 72; RESP 16; TEMP 97.6; O2SAT 96
[2023-08-26] MEDS ORDERED: LID5T TP (13:50)
== END 2023-08-26 13:53 | disposition home or self-care (01) ==
LOC: MED 12:35
DX: M62.830 Muscle spasm of back (principal); E11.9 Type 2 diabetes mellitus without complications; I10 Essential (primary) hypertension; E78.5 Hyperlipidemia, unspecified; Z98.890 Other specified postprocedural states; Z79.899 Other long term (current) drug therapy
CPT/HCPCS: 82948; 99283